=== PATIENT | male | born 2000 | race Caucasian/White ===

== ENCOUNTER → 2019-02-23 | Outpatient (CLI) | payer OTHER ==
--- NOTE | 2019-02-23 09:14 | RADIOLOGY IMAGING REPORT ---
FACILITY: [facility] PATIENT NAME: Min Meza : 2000 MR: [id number] V: [id number] EXAM DATE: ORDERING PHYSICIAN: ISABEL EVERETT TECHNOLOGIST: Location: [facility] Patient: Min Meza : 2000 Visit/Account:[id number] Date of Sevice: 02/23/2019 EXAMINATION: Scrotal ultrasound with duplex Doppler evaluation HISTORY: Scrotal pain COMPARISON: None. FINDINGS: Testes: Normal in size and echogenicity without mass or microlithiasis. The right testis measures 4. 7 x 2.1 x 3.1 cm and the left testis measures 4.5 x 1.9 x 2.8 cm. Symmetric blood flow documented by color Doppler ultrasound. Low resistance arterial blood flow within each testicle by duplex Doppler ultrasound. Venous blood fl ow is also documented. Epididymides: Simple appearing 4 mm avascular epididymal head cyst on the right. Simple appearing 3. 4 mm avascular epididymal head cyst on the left. Blood flow is appropriate in each epididymis by color Doppler ultrasound. Hydrocele: None. Varicocele: Small bilateral varicoceles IMPRESSION: Unremarkable for acute pathology. Very small bilateral varicoceles Report Dictated By: Justin Patel MD at 02/23/2019 9:06 AM Report E-Signed By: Justin Patel MD at 02/23/2019 9:08 AM WSN:[id number]
== END ==
LOC: US 08:10
PROVIDERS: ATTEND Urology
DX: I86.1 Scrotal varices (principal); N50.3 Cyst of epididymis
CPT/HCPCS: 76870